=== PATIENT | female | born 1985 | race Caucasian/White ===

== ENCOUNTER 2016-05-15 16:16 | Emergency (ER) | payer MEDICAID ==
[~2016-05-15 16:16] MED LIST: COLACE-DPS100 MG PO; MOTRIN-DPS800 MG PO; PERCOCET 5 DPS1 TAB PO; PREDNISONE20 MG PO; PRENATAL VIT1 TAB PO; PROAIR HFA8.5 GM IH; Z-PACK PO
--- NOTE | 2016-05-21 15:06 | ER ---
ADMIT: 05/15/2016 RM/LOC: ER [facility] MR#: [id number] [address] [id number] KAYLA RAMOS [address] [place] [address] Emergency Room Report SEX: F AGE: 30 : 1985 DATE: 05/15/2016 TIME: 1616 hours. Refer to my T-sheet for complete H and P. HISTORY OF PRESENT ILLNESS: Briefly, the patient is a 30-year-old, who is 2 months status post . She has apparently had a dehiscence and a slow healing of a wound. She has had a wound VAC on for short time trying to get it to heal up, but she thinks the wound VAC quit working in the last couple days. She talked to Wound Care, they wanted her to come in this morning. She could not because she was at work. She comes in now and saying that they had talked to her and told her to just take it off and they would refit it tomorrow morning, she wanted help with that. No fevers. No other complaints. PHYSICAL EXAMINATION: VITAL SIGNS: Stable. ABDOMEN: Shows the wound VAC is not draining. There is no erythema. No evidence of severe infection. ABDOMEN: Soft, otherwise. EMERGENCY DEPARTMENT COURSE: I removed the cover and the gauze. It was very clean, slightly irritated after we removed the packing. We cleansed it here, covered it, she is going to go home and take a shower cleaning it more. She is going to recover it and she will go to wound care in the morning. ASSESSMENT: 1. . 2. Wound dehiscence. 3. Wound VAC not functioning. We removed here, appears to be clean and in the healing process. PLAN: See Wound Care in the morning. Return if problems. Giovany Manzo MD/ dejuan JOB #: [id number] CC: Serge Silverio MD, Attending Physician Minnie Cantrell MD, Family Physician
== END 2016-05-15 17:13 | disposition home or self-care (01) ==
LOC: ER 16:16
DX: T81.31XA Disruption of external operation (surgical) wound, not elsewhere classified, initial encounter (principal); F17.210 Nicotine dependence, cigarettes, uncomplicated; Z88.0 Allergy status to penicillin